=== PATIENT | male | born 1990 | race Caucasian/White ===

== ENCOUNTER 2019-02-23 16:53 | Emergency (ER) | payer BC ==
[~2019-02-23] VITALS: Ht 195.6 cm; Wt 72.6 kg
[2019-02-23 17:43] VITALS: BP 117/65
--- NOTE | 2019-02-23 18:15 | PHYS DOC ---
Past Medical History Additional Past Medical Histor: Cliefleters syndrome Past Surgical History: No Surgical History Additional Information: Quit 3 years ago Alcohol Use: Rarely Drug Use: None Adult General Chief Complaint Chief Complaint: [facility] HPI Patient is a 29 year old male who presents with left shoulder pain starting approximately 1600 today. Patient reports he was sitting at his desk typing, when he had a sudden onset of pain in his left shoulder, feeling a pop before it started. States he does have some discomfort when trying to move his arm anteriorly, reports he feels weak doing that. Denies any trauma, denies any falling, reports he is able to move his arm laterally to midpoint before having increased discomfort. Reports he is actually able to move his arm posteriorly with a decrease in discomfort states he has not taken any medicines for this, he does not normally like to take medications. .. Review of Systems Review of Systems Constitutional: Denies fever or chills [] Eyes: Denies change in visual acuity, redness, or eye pain [] HENT: Denies nasal congestion or sore throat [] Respiratory: Denies cough or shortness of breath [] Cardiovascular: No additional information not addressed in HPI [] GI: Denies abdominal pain, nausea, vomiting, bloody stools or diarrhea [] : Denies dysuria or hematuria [] Musculoskeletal: Denies back pain or joint pain complains of isolated pain to left shoulder. [] Integument: Denies rash or skin lesions [] Neurologic: Denies headache, focal weakness or sensory changes [] Endocrine: Denies polyuria or polydipsia [] All other systems were reviewed and found to be within normal limits, except as documented in this note. Current Medications Current Medications Current Medications Medications (Trade) Dose Ordered Sig/[facility] Start Time Stop Time Status Last Admin Dose Admin Ibuprofen (Motrin) 400 mg 1X ONCE 02/23/19 18:30 02/23/19 18:31 DC 02/23/19 18:52 400 MG Allergies Allergies Allergies Coded Allergies Type Severity Reaction Last Updated Verified No Known Drug Allergies 02/23/19 No Physical Exam Physical Exam Constitutional: Well developed, well nourished, no acute distress, non-toxic appearance. [] HENT: Normocephalic, atraumatic, bilateral external ears normal, oropharynx moist, no oral exudates, nose normal. [] Eyes: PERRLA, EOMI, conjunctiva normal, no discharge. [] Neck: Normal range of motion, no tenderness, supple, no stridor. [] Cardiovascular:Heart rate regular rhythm, no murmur [] Lungs & Thorax: Bilateral breath sounds clear to auscultation [] Abdomen: Bowel sounds normal, soft, no tenderness, no masses, no pulsatile masses. [] Skin: Warm, dry, no erythema, no rash. [] Back: No tenderness, no CVA tenderness. [] Extremities: No tenderness, no cyanosis, no clubbing, ROM intact, no edema. Pulses intact. Active range of motion limited on the anterior raise, 2 approximately 30. Active range of motion laterally to 90. Active range of motion posteriorly full. Passive range of motion the anterior artery discomfort. Passive range of motion laterally to 90 limited by discomfort. Minimal increase in discomfort noted to palpation of scapula left side.[] Neurologic: Alert and oriented X 3, normal motor function, normal sensory function, no focal deficits noted. [] Psychologic: Affect normal, judgement normal, mood normal. [] Current Patient Data Vital Signs Vital Signs Date Time Temp Pulse Resp B/P (MAP) Pulse Ox O2 Delivery O2 Flow Rate FiO2 02/23/19 17:43 98.2 79 20 117/65 (82) 98 Room Air 98.2 EKG EKG [] Radiology/Procedures Radiology/Procedures Discussed X ray images with Dr Bach, no fracture, dislocation noted. [] Course & Med Decision Making Course & Med Decision Making Pertinent Labs and Imaging studies reviewed. (See chart for details) [Discussed imaging, discussed symptoms likely due to inflammation or joint issue in shoulder. Patient in agreement to wear sling and use NSAIDS scheduled, with follow up as needed ] Vamsion Disclaimer Dragon Disclaimer This electronic medical record was generated, in whole or in part, using a voice recognition dictation system. Departure Departure Impression: Primary Impression: Shoulder pain, left Additional Impression: Left shoulder tendinitis Disposition: 01 HOME, SELF-CARE Condition: GOOD Referrals: NO PCP (PCP) Patient Instructions: Shoulder Pain, [id number], Shoulder, Range of Motion Exercises Additional Instructions: As we discussed, use the sling for the next 5-6 days to support your shoulder. Take Ibuprofen, 400-600 mg Every 8 hours for the next 5 days to decrease the inflammation in your shoulder There was no fracture or dislocation noted on your X rays today It is possible there is an irritation in the tendons or ligaments in your shoulder causing the discomfort and inability to move your arm fully. Follow up with your primary care provider if no improvement Problem Qualifiers Primary Impression: Shoulder pain, left Chronicity: acute Qualified Codes: M25.512 - Pain in left shoulder CB MARTINEZ APRN Feb 23, 2019 18:15
[2019-02-23] MEDS ORDERED: IBUPROFEN 400 MG TABLET. PO ONE (18:30)
--- NOTE | 2019-02-24 01:55 | RAD ---
Left shoulder 3 views: Reason for examination: Left shoulder pain. No fracture or dislocation is seen. The bone density is normal. No abnormal periosteal reaction is seen. Joint space is maintained. IMPRESSION: No acute bony abnormality evident at the left shoulder. Electronically signed by: Irene Yen MD (02/24/2019 1:52 AM) [id number]
== END 2019-02-23 19:15 | disposition home or self-care (01) ==
LOC: ER 16:53
DX: M75.82 Other shoulder lesions, left shoulder (principal); Z87.891 Personal history of nicotine dependence
CPT/HCPCS: 73030; 99284